=== PATIENT | female | born 1985 | race American Indian/Alaskan Native ===

== ENCOUNTER 2018-02-06 22:11 | Emergency (ER) | payer OTHER ==
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
[2018-02-07 04:01] VITALS: BP 127/71
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
== END 2018-02-06 23:58 | disposition home or self-care (01) ==
LOC: MW.ED 22:11
DX: M62.838 Other muscle spasm (principal); M54.2 Cervicalgia
CPT/HCPCS: 71045; 71045-26; 72040; 72040-26; 81001; 81025; 99283; 99284

== ENCOUNTER 2018-05-01 18:11 | Emergency (ER) | payer SELFPAY ==
[2018-05-01] MEDS ORDERED: Bupivacaine 0.5% 10 ML SDV INJECT ONE (18:22)
[2018-05-01] MEDS ORDERED: Lidocaine 1% 20 ML MDV INJECT ONE (18:22)
--- NOTE | 2018-05-01 18:43 | EDM.PDOC ---
ED HPI GENERAL MEDICAL PROBLEM - General Chief Complaint: Skin Complaint Stated Complaint: BOIL Time Seen by Provider: 05/01/18 18:12 Source of Information: Reports: Patient History Limitations: Reports: No Limitations - History of Present Illness INITIAL COMMENTS - FREE TEXT/NARRATIVE: History of present illness: []Patient noticed an abscess on her left buttock cheek in the shower last night it began to drain. She awoke today and her whole left buttock cheek is erythematous. She denies any fevers, chills, nausea, vomiting or diarrhea. Does have a mild headache. Review of systems: As per history of present illness and below otherwise all systems reviewed and negative. Past medical history: As per history of present illness and as reviewed below otherwise noncontributory. Surgical history: As per history of present illness and as reviewed below otherwise noncontributory. Social history: No reported history of drug or alcohol abuse. Family history: As per history of present illness and as reviewed below otherwise noncontributory. Physical exam: General: Well developed, well nourished in NAD HEENT: Atraumatic, normocephalic, pupils reactive, negative for conjunctival pallor or scleral icterus, mucous membranes moist, throat clear, neck supple, nontender, trachea midline. Lungs: Clear to auscultation, breath sounds equal bilaterally, chest nontender. Heart: S1S2, regular, negative for clicks, rubs, or JVD. Abdomen: Soft, nondistended, nontender. Negative for masses or hepatosplenomegaly. Negative for costovertebral tenderness. Pelvis: Stable nontender. Genitourinary: Left buttock cheek with 1 cm x 1 cm indurated abscess on the upper outer quadrant, no active drainage or fluctuance palpable. There's a similar small lesion approximately 0.5cm x 0.5cm. Rectal: Deferred. Extremities: Atraumatic, negative for cords or calf pain. Neurovascular unremarkable. Neuro: Awake, alert, oriented. Cranial nerves II through XII unremarkable. Cerebellum unremarkable. Motor and sensory unremarkable throughout. Exam nonfocal. Diagnostics: [] Therapeutics: []Ceftriaxone 1 g IM Impression: []Cellulitis left buttock cheek Plan: []Bactrim Twice a day for 10 days, warm soaks or compresses up with PMD or return to ER if symptoms worsen or change. Definitive disposition and diagnosis as appropriate pending reevaluation and review of above. 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: Musculoskeletal History: Reports: None Neurological History: Reports: None Psychiatric History: Reports: None Endocrine/Metabolic History: Reports: None Hematologic History: Reports: None Immunologic History: Reports: None Oncologic (Cancer) History: Reports: None Dermatologic History: Reports: None - Infectious Disease History Infectious Disease History: Reports: Chicken Pox, Shingles - Past Surgical History Head Surgeries/Procedures: Reports: None Musculoskeletal Surgical History: Reports: Other (See Below) Other Musculoskeletal Surgeries/Procedures:: neck fusion Social & Family History - Family History Family Medical History: Noncontributory - Caffeine Use Caffeine Use: Reports: Soda ED ROS GENERAL - Review of Systems Review Of Systems: See Below (See history of present illness) ED EXAM, SKIN/RASH Exam: See Below (See history of present illness) Course - Vital Signs Last Recorded V/S: Last Vital Signs Temp 98.0 F 05/01/18 18:28 Pulse 112 H 05/01/18 18:28 Resp 16 05/01/18 18:28 BP 142/78 H 05/01/18 18:28 Pulse Ox 96 05/01/18 18:28 - Orders/Labs/Meds Meds: Medications Discontinued Medications Generic Name Dose Route Start Last Admin Trade Name Freq PRN Reason Stop Dose Admin Ceftriaxone Sodium 1,000 mg/ 2.1 mls @ 2.1 mls/sec 05/01/18 18:28 Lidocaine HCl IM 05/01/18 18:29 ONETIME ONE Departure - Departure Time of Disposition: 18:44 Disposition: Home, Self-Care 01 Condition: Good Clinical Impression: Cellulitis of left buttock - Discharge Information Prescriptions: Sulfamethoxazole/Trimethoprim [Bactrim Ds Tablet] 1 each PO BID #20 tablet Referrals: PCP,None [Primary Care Provider] - Additional Instructions: The following information is given to patients seen in the emergency department who are being discharged to home. This information is to outline your options for follow-up care. We provide all patients seen in our emergency department with a follow-up referral. The need for follow-up, as well as the timing and circumstances, are variable depending upon the specifics of your emergency department visit. If you don't have a primary care physician on staff, we will provide you with a referral. We always advise you to contact your personal physician following an emergency department visit to inform them of the circumstance of the visit and for follow-up with them and/or the need for any referrals to a consulting specialist. The emergency department will also refer you to a specialist when appropriate. This referral assures that you have the opportunity for follow-up care with a specialist. All of these measure are taken in an effort to provide you with optimal care, which includes your follow-up. Under all circumstances we always encourage you to contact your private physician who remains a resource for coordinating your care. When calling for follow-up care, please make the office aware that this follow-up is from your recent emergency room visit. If for any reason you are refused follow-up, please contact the [facility] Emergency Department at and asked to speak to the emergency department charge nurse. [facility] [address] [place] [id number]
[2018-05-01 19:07] VITALS: BP 138/82
== END 2018-05-01 19:09 | disposition home or self-care (01) ==
LOC: MW.ED 18:11
DX: L03.317 Cellulitis of buttock (principal); L03.211 Cellulitis of face
CPT/HCPCS: 96372; 99283; J0696